=== PATIENT | male | born 1955 | race Caucasian/White ===

== ENCOUNTER 2023-05-16 09:38 | Outpatient (AMB) | payer MEDICARE, SELFPAY ==
--- NOTE | 2023-05-16 10:10 | A.SPINEOV_ITS ---
Intake Intake Visit Reasons: lower back stenosis Intake Note: Mr. Davison is here today c/o low back and bilateral sciatica pain. MRI done @ [facility]/brought disc. Sort Line Worker Required: No Assessment & Plan Assessment & Plan (1) Lumbar stenosis with neurogenic claudication: Code(s): M48.062 - Spinal stenosis, lumbar region with neurogenic claudication (2) Cervical myelopathy: Code(s): G95.9 - Disease of spinal cord, unspecified (3) Carpal tunnel syndrome on both sides: Code(s): G56.03 - Carpal tunnel syndrome, bilateral upper limbs Plan Dear colleague Thank you for referring Darius Davison to the office today with a chief complaint of bilateral leg pain. HPI: This 67-year-old male is complaining of a predominantly right leg pain since January 2020. He can hardly walk or stand due to pain. Initially, sitting down improves his symptoms now he has to lay down to get rid of the symptoms. Leaning over a shopping cart also improves his symptoms. The pain radiates down to the outside of his lower leg to his foot. Six weeks ago pain started in his left leg in the same distribution. On further questioning, he describes a sandpaper feeling under his feet, balance problems and numbness of his hand with dexterity loss. He had carpal tunnel syndrome release done 10 years ago and he is under the impression that the carpal tunnel symptoms returned. He also noticed jumping of his legs. The following conservative treatment options were tried without success antiinflammatories, tylenol, physical therapy, 2 epidural steroid injections without success. PMH: Hypertension Medications: Lisinopril, hydrochlorothiazide Allergies: NKDA Social history: Nonsmoker. . Retired Physical Exam: Pleasant, obese male. There is numbness of his bilateral hands. Reflexes are normal. No pathological reflexes. 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 Straight leg raise negative bilaterally. Slightly wide-based gait. 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 Impression/Plan: This 67-year-old male is suffering from neurogenic claudication an L5 dermatome due to severe bilateral L5 foraminal stenosis. Conservative treatments have failed. He also displays symptoms suspicious for cervical myelopathy. I would like to obtain an MRI of the cervical spine before addressing the bilateral L5 foraminal stenosis. The patient denies back pain and therefore we discussed a nonfusion in the form of a bilateral L5 foraminotomy. Possibly, I will address his carpal tunnel syndrome as well if the MRI of the cervical spine is negative. I will see the patient after the MRI of the cervical spine is done to make a final plan. Thank you for allowing me to participate in your patients care. total time spent was 50 minutes in counseling ,coordination of plan, personal review of imaging, surgical decision making and subsequent plan Martin Emerson MD, PhD Spine Fellowship Trained Neurosurgeon Director, [facility] [place] [facility] Orders: Orders MR cervical spine wo con Today G95.9 - Disease of spinal cord, unspecified Coding Level of Care Code New Pt Level 4 (10967) Diagnoses Lumbar stenosis with neurogenic claudication M48.062 Cervical myelopathy G95.9 Carpal tunnel syndrome on both sides G56.03
--- NOTE | 2023-06-12 15:01 | A.SPINEOV_ITS ---
Intake Intake Visit Reasons: lower back stenosis Assessment & Plan Assessment & Plan (1) Lumbar stenosis with neurogenic claudication: Code(s): M48.062 - Spinal stenosis, lumbar region with neurogenic claudication Plan: On 06/12/2023, had a telephone encounter with Zbigniew Davison. The MRI of the cervical spine shows no spinal cord compression. He continues to suffer from back pain radiating down both legs with walking and standing which improves with sitting or laying down. Imaging review severe bilateral L5 foraminal stenosis. I offered him a bilateral L5 foraminotomy to address the neurogenic claudication symptoms. He is scheduled for June 18, 2023. Martin Emerson MD, PhD Spine Fellowship Trained Neurosurgeon Director, [facility] [place] [facility] Orders: Orders MR cervical spine wo con 05/16/23 G95.9 - Disease of spinal cord, unspecified Coding Level of Care Code Tele Est Pt Level 1 (89836) Diagnoses Lumbar stenosis with neurogenic claudication M48.062
== END 2023-05-16 11:22 | disposition home or self-care (01) ==
PROVIDERS: PCP Family Medicine; Visit Provider Neurological Surgery
DX: M48.062 Spinal stenosis, lumbar region with neurogenic claudication (principal)
CPT/HCPCS: 99204; 99211

== ENCOUNTER → 2023-05-16 09:38 | Outpatient (BNVA) | payer MEDICARE, SELFPAY | PROVIDERS: PCP Family Medicine; Visit Provider Neurological Surgery ==

== ENCOUNTER → 2023-06-12 14:41 | Outpatient (BNVA) | payer MEDICARE, SELFPAY | PROVIDERS: PCP Family Medicine; Visit Provider Neurological Surgery ==

== ENCOUNTER 2023-06-18 08:06 | Day surgery (SDC) | payer MEDICARE, SELFPAY ==
[2023-06-18] VITALS (9 sets, daily range): BP systolic 114–156; BP diastolic 64–85; PULSE 79–91; RESP 14–20; TEMP 36.2–37.1; O2SAT 95–98; BMI 48.6
--- NOTE | ~2023-06-18 | FL_ITS ---
EXAMINATION: XR FLUOROSCOPY WITH IMAGES CLINICAL INFORMATION: L5 foraminotomy. COMPARISON: None available. TECHNIQUE: Fluoroscopy Supervised By: Dr. Martin Emerson. Fluoroscopy Time: 0.0 minutes. Cumulative Dose: 5.10 mGy. DAP: 0.961 Gycm2. Images: 2. FINDINGS: Images demonstrate instrument and probe posterior to the L5-S1 disc space. FL/FL guidance in OR IMPRESSION: Fluoroscopy guidance for lumbar spine surgery.
--- NOTE | 2023-06-18 07:05 | MHC.SHP ---
Pre-Procedural Eval Section A Date of Service: 06/18/23 The patient is an INPATIENT: No Changes since office visit: No Cold of Flu in the past 2 weeks, No New Medical Problems, No Changes in Medication and No Patient answered all questions The History & Physical has been completed within 30 days and I have reviewed it.: No Section B Chief Complaint: Spinal stenosis, lumbar region with neurogenic cla Review of Systems Sugical H&P ROS: Negative: Constitution, Cardiovascular, Respiratory, Neurological, Psychiatric, Hem-Onc, Allergic/Immunologic, Gastrointestinal, Genitourinary, Musculoskeletal, Integumentary, Endocrine and Eyes/Ears/Nose/Throat Exam Surgical H&P Exam: Not Evaluated: HEENT, Not Evaluated: Heart, Not Evaluated: Lungs, Not Evaluated: Extremities, Not Evaluated: Abdomen, Not Evaluated: Skin and Not Evaluated: Neurological Plan Diagnosis/Plan: Unchanged I have reviewed the history and physical and performed a pertinent physical examination on my patient. No changes have occurred unless specified. bilateral L5 foraminotomy Time Spent With Patient Time: Total time managing care of this patient today __10__ minutes.
[2023-06-18] MEDS: methocarbamoL 750 MG TABLET PO (11:36)
[2023-06-18] MEDS: Gabapentin 300 MG CAPSULE PO (11:36)
[2023-06-18] MEDS: Lactated Ringers 1,000 ML 100 ML IVCONT (11:47)
--- NOTE | 2023-06-18 12:05 | HO.ANESPROP2 ---
HPI - Anesthesia Eval Consult details Narrative: lumbar radiculopathy PMFSH Active Problems Active Problems: All Active Problems (Updated 05/16/23 @ 10:57 by Martin Emerson MD, PhD) Carpal tunnel syndrome on both sides (Acute) Cervical myelopathy (Acute) Lumbar stenosis with neurogenic claudication (Acute) Family History Family history of problems with anesthesia: No Surgical History Surgical History (Updated 06/18/23 @ 08:52 by Heidi Johnson RN) H/O right knee surgery History of Problems with Anesthesia: Yes Social History Patient Tobacco Use Status: Never used Tobacco Have you been hit, kicked, punched, or otherwise hurt by someone within the past year? If so, by whom?: No Advance Directives: No Advance Directives Information Provided: Yes Recently lost weight without trying: No Nutrition Risks: No Nutritional Risk Poor oral hygiene: No Meds Allergies Allergy/AdvReac Type Severity Reaction Status Date / Time No Known Allergies Allergy Verified 06/18/23 08:54 Active Medications: Current Medications Lactated Ringer's (Lr) 1,000 mls @ 100 mls/hr IVCONT .Q10H ULYSSES Last Admin: 06/18/23 11:47 Dose: 100 mls/hr Home Medications Medication Instructions Recorded Confirmed Last Taken Type aspirin 81 mg capsule 81 mg PO DAILY 06/18/23 06/18/23 06/18/23 History hydrochlorothiazide 25 mg tablet 25 mg PO DAILY 06/18/23 06/18/23 06/18/23 History ibuprofen 400 mg tablet 400 mg PO Q8H PRN Pain, Moderate 06/18/23 06/18/23 06/18/23 History lisinopril 5 mg tablet 5 mg PO DAILY 06/18/23 06/18/23 06/18/23 History Exam Height,Weight and Vital Signs: Height 5 ft 5 in Weight 132.449 kg Last Vital Signs Temp 98.8 F 06/18/23 08:46 Pulse 86 06/18/23 08:46 Resp 18 06/18/23 08:46 BP 151/76 H 06/18/23 08:46 Pulse Ox 95 06/18/23 08:46 O2 Del Method Room Air 06/18/23 08:46 Airway Mallampati Class: III TM Dist: >3cm Neck ROM: Limited Heart: rrr Lungs: cta Other: morbid obesity Assessment and Plan Final Anesthetic Review Family History of Problems with Anesthesia: No History of Problems with Anesthesia: Yes NPO: Yes ASA Class: III Final Preanesthetic Review: No Changes in Pt Med Stat, Meds/Allgs Chart Reviewed, Consent Obtained/Reviewed and Anes Risks/Benef Reviewed Patient Risk: High Procedure Risk: Intermediate Anesthetic Plan Anesthetic Plan: GA and Agree w/ Assess. and Plan Disposition: Standard PACU
--- NOTE | 2023-06-18 14:29 | W.PM.OPN ---
Operative Note Operative Note Date of Service: 06/18/23 Narrative: Preoperative Diagnosis: L5-S1 spondylolisthesis/ Spinal stenosis/lateral recess stenosis/neural foraminal stenosis Operation: Bilateral L5 Laminotomy, Partial facetectomy and foraminotomy with use of microscope Consent Informed Consent was obtained for this operation. I have explained the nature, purpose and benefits of the operation. I have discussed the risks and benefit of the operation including possible complications or adverse events with patient/family. Alternative(s) were discussed with the patient with their relative benefits and risks as well as the consequences of not accepting the operation were included in obtaining consent. Surgeon: MARISOL ROMO MD, PHD Procedure Assisted By: larisa Barbour Description of Procedure This 67-year-old male presented with a stable L5-S1 lumbar spondylolisthesis without back pain but with bilateral L5 radiculopathy due to severe L5 foraminal stenosis. We discussed surgical options, being a simple decompression versus lumbar fusion. He denies back pain and therefore a simple bilateral L5 laminotomy/foraminotomy is appropriate. The procedure complications were explained. The patient was consented. The patient was brought to the operating room and endotracheally intubated. The patient was turned in prone position on the Dion frame. Prep and drape was done followed by timeout. Physician assistant corporate controller provided access. A mid lumbar incision was made followed by release of the bilateral paravertebral muscle to expose the bilateral L5 laminae and facet joint. An intraoperative x-ray was obtained to confirm the correct level. The microscope was brought in. I took over the procedure. The high-speed drill was used to do a left L5 laminotomy. #2 Kerrison was used to further remove the lamina towards the L5 foramen foramen. With a nerve hook the medial wall of the L5 pedicle was palpated as well as the beginning of the L5 foramen. The facet joint was partially drilled down after which with a #2 Kerrison a foraminotomy was done. Finally a foraminotomy Kerrison was used to complete the foraminotomy. A long the nerve root could be passed, a sign of relief of the neuroforaminal stenosis and decompression of the nerve root . The same procedure was repeated for the contralateral side where again a significantly compressed L5 nerve root was encountered and decompressed by performing hemilaminotomy and foraminotomy. The microscope was removed. Hemostasis was done. Incision was closed in 2 layers. Steri-Strips were used to approximate incision. An OpSite with Tegaderm was used to cover the incision. All sponge needle counts were correct. Patient was extubated and transported in stable is to recovery room. Anesthesia: General Estimated Blood Loss (ml): Minimal Duration of Surgery: Under 60 Minutes Postoperative Plan: Discharge to home
--- NOTE | 2023-06-18 14:45 | P.DS_ITS ---
DS: Providers Provider Date of Service: 06/18/23 Date of discharge: 06/18/23 Primary care physician: Cosme Mabry MD Admitting clinician: Martin Emerson DS: Diagnosis Discharge Diagnosis (1) Lumbar stenosis with neurogenic claudication: Status: Acute DS: Summary Time Attestation Discharge coordination time: Less than 30 minutes Quality: Safe Use of Opioids Does Pt have an Active Cancer Diagnosis on the Problem List?: No Quality: Stroke Does the patient have a stroke diagnosis?: No Physical Exam Vital Signs: Vital Signs: Last Vital Signs Temp 98.8 F 06/18/23 08:46 Pulse 86 06/18/23 08:46 Resp 18 06/18/23 08:46 BP 151/76 H 06/18/23 08:46 Pulse Ox 95 06/18/23 08:46 O2 Del Method Room Air 06/18/23 08:46 BMI result Body Mass Index 48.6 Discharge Plan Discharge Patient Disposition: Home, Self-Care Referrals: Cosme Mabry MD [Primary Care Provider] - 1 Week Discharge Medications: New docusate sodium [Colace] 100 mg capsule 100 mg PO BID Qty: 20 0RF oxycodone 5 mg tablet 5 mg PO Q4H PRN (Reason: pain) Qty: 30 0RF Rx Instructions: Partial Fill upon patient request. Continued hydrochlorothiazide 25 mg Tablet 25 mg PO DAILY lisinopril 5 mg Tablet 5 mg PO DAILY ibuprofen 400 mg Tablet 400 mg PO Q8H MDD 800 PRN (Reason: Pain, Moderate) Held aspirin 81 mg Capsule 81 mg PO DAILY Hold Instructions: Resume on 06/25/23. resume one week after surgery Discharge Orders: Discharge Order (Routine); Ordered 06/18/23 Ordered By: Alexis Armijo Diet: Advance to usual diet Activity on Discharge: As tolerated Activity Restrictions/Additional Instructions: After your spinal surgery we ask you to observe the following restrictions/guidelines: Activity: It is normal to feel some discomfort as you increase your activity, but that wi ll improve with time. We ask you avoid heavy lifting or acitivities that cause pain. As a general rule, 8lbs is a safe limit for lifting right after surgery. Walk as much as you feel comfortable but not to exhaustion. You will feel extra tired the first few days after surgery. Stay well hydrated. It is OK to walk up and down stairs You may return to driving when you are off narcotics (such as vicodin, oxycodone, dilaudid, etc), and you are back to normal functional capacity. If you have any concerns please check with office before driving. Return to work is specific to each patient and each surgery, so please speak with your doctor/PA at first follow up. Please bring paperwork such as FMLA at that time if you need it filled out. Medications: For optimum pain control, it is best to start with a combination of 500 mg of Tylenol every 4 hours with 600 mg of Motrin every 8 hours, and use narcotics as needed in between for breakthrough pain. We will give you a short supply of narcotics after surgery (usually one weeks worth). If you need more please call the office but do not use more than prescribed. You will need to give our office 48 hours notice if you need narcotics refilled and we do not fill narcotics on weekends or evenings. If you are on a narcotic, it is a good idea to take a stool softener such as colace or senna to avoid constipation If you take blood thinner such as aspirin, Plavix, Coumadin, Effient, Eliquis etc for conditions such as Afib, DVT, Pulmonary embolus, coronary disease, stents etc please speak with your surgeon about specific details as to when you can resume these medications. You can resume NSAIDs on post op day 1 (eg: Motrin, Naproxen, etc). Follow up: Please call the office, , after surgery to arrange a 3 week follow up for wound check. Wound Care: You may remove your dressing on the first day after surgery. You may leave open to air. Please do not remove the steri strips underneath. they will fall off on their own in one week. IT IS NORMAL FOR THE WOUND TO OOZE OR BE BLOODY FOR A FEW DAYS AFTER SURGERY. IF THIS HAPPENS JUST PLACE NEW DRESSING OVER IT TO AVOID STAINING CLOTHES. You may shower on post op day # 1 We ask that you do not let the water soak the wound. If it does get wet, just towel dry lightly. Please do not scrub your incision or place any type of chemical/ointment on the wound. No tub baths, pools or jacuzzis for one month. If you have any leaking or redness from your wound, or fevers, please call office
--- NOTE | 2023-06-18 16:44 | PC.NURSE ---
patient ambulated steady gait in bathroom voidx1
== END 2023-06-18 16:44 | disposition home or self-care (01) ==
PROVIDERS: PCP Family Medicine; Visit Provider Neurological Surgery
PROC: (CPT 63047; principal; 2023-06-18 10:40)
DX: M48.062 Spinal stenosis, lumbar region with neurogenic claudication (principal); M43.17 Spondylolisthesis, lumbosacral region
CPT/HCPCS: 63047; J0131; J0690; J1100; J1885; J2250; J2405; J2704; J3010

== ENCOUNTER → 2023-06-18 08:06 | Outpatient (BNV) | payer MEDICARE, SELFPAY | PROVIDERS: PCP Family Medicine; Visit Provider Neurological Surgery | DX: M48.062 Spinal stenosis, lumbar region with neurogenic claudication (principal) | CPT/HCPCS: 63047; 99499 ==

== ENCOUNTER 2023-06-27 09:13 | Outpatient (AMB) | payer MEDICARE, SELFPAY ==
--- NOTE | 2023-06-27 09:30 | A.SPINEOV_ITS ---
Intake Intake Visit Reasons: wound check Intake Note: Mr. Davison is here today for a wound check. Manager Book Required: No Allergies No Known Allergies Allergy (Verified 06/18/23 08:54) Assessment & Plan Assessment & Plan (1) S/P spinal surgery: Code(s): Z98.890 - Other specified postprocedural states Plan Procedure: L5 bilateral decompression POD: 9 Zbigniew comes in today for a wound check after calling the office yesterday and reporting that he had some continued bleeding from his incision site alongside ecchymosis that had formed on his lateral side about 4-5 inches from the wound. He reported that he has been taking roughly 2400 mg of ibuprofen per day, and was encouraged to begin reducing this by roughly half. He states that his primary care provider put him on this medication for pain, and that is been significantly helping his postoperative pain relief. Our concern is that it may be causing him continued bleeding postoperatively. On exam Zbigniew has a 4-5 cm area of ecchymosis that has formed to the left lateral side of the incision site. He also has some scant ecchymosis around the actual incision. There is no significant swelling, his skin is not hot to touch, there is no fluctuance palpated, and there is no streaking or redness around the incision site. The incision site remains well approximated, with subcutaneous buried sutures. Initially the incision was treated by cleansing it with alcohol and attempting horizontal Steri-Strips with a bandage on top, however the wound continued to produce sanguinous drainage, and the patient inquired of any other options we could provide which would stop the drainage without the need for copious frequent bandage changes. Therefore the initial bandage was removed, and the wound was cleaned again with isopropyl alcohol and gauze, then a layer of exofin was used to encourage close approximation of the incision site. Two vertical Steri-Strips were imbedded in the Exofin, and a large standard bandage was placed over the top of the incision site. Hemostasis was then achieved. The plan going forward is for the patient to follow-up in office at his regularly scheduled postoperative visit. Because he lives 1.5 hours away, he was informed that he may call the office at any time and we will facetime with him to reassess his incision site if any further complications arise. Ruperto Emerson MD,PhD [facility] Coding Level of Care Code Global (36865) Diagnoses S/P spinal surgery Z98.890
== END 2023-06-27 10:13 | disposition home or self-care (01) ==
PROVIDERS: PCP Family Medicine; Visit Provider Physician Assistant
DX: Z98.890 Other specified postprocedural states (principal)
CPT/HCPCS: 99024

== ENCOUNTER → 2023-06-27 09:13 | Outpatient (BNVA) | payer MEDICARE, SELFPAY | PROVIDERS: PCP Family Medicine; Visit Provider Physician Assistant | DX: Z98.890 Other specified postprocedural states (principal) | CPT/HCPCS: 99212 ==

== ENCOUNTER 2024-07-04 10:42 | Outpatient (AMB) | payer MEDICARE, SELFPAY ==
--- OUTSIDE RECORDS SUMMARY | 2024-07-04 10:52 | XMS_ITS | Continuity of Care Document ---
Author Organization [facility], [facility] Address [address] [place] [address] Assessment Encounter Date Assessment Date Assessment LastModified by Organization Details LastModified Time 06/10/2024 06/10/2024 40min [email or web address] Not available 05/23 09:36:48 Plan of Treatment Reminders Order Date Submit Date Provider Last Modified By Organization Details Last Modified Time Details Appointments FOLLOW UP 2024 08:00A M Cosme Reyes MD Not available Not available Not available Lab None recorded . Referral None recorded . Procedures None recorded . Surgeries None recorded . Imaging None recorded . Medication Orders None recorded . Patient TargetsNo targets recorded. Patient InstructionsNo instructions recorded. Reason for Referral None Reported. Results Created Date Observation Date Name Description Value Unit Range Abnormal Flag Note LastModifiedBy Organization Detail LastModifiedTime 05/29/2005/29/2024 CT, brain , w/o contr ast [facility] Imagin [facility] Hospit al [facility] [place] [address] CT Scan Report Signed Patien t: YulyYordy boone rachel 1825 : [address]: Jose Reyes Age: 68 E.D. Attend ing: EMR ID: [id number] Loc: RAD.NR PCP:St noah Reyes MD Acct: [id number] Admit/ Svc Date: Orderi ng Physic akin: Jose Reyes MD Date of Servic e: Proced ure(s) : CT brain wo con Reason for Exam: Stroke W expres sive aphasi a Access ion Number (s): [id number] Fax to: cc: Jose Reyes MD CT OF THE BRAIN WITHOU T IV CONTRA ST 024 3:00 PM REASON FOR EXAM: 68 years Male with Stroke W expres sive aphasi a COMPAR SANDY: None availa ble TECHNI QUE: Comput ed axial tomogr aphy images of the head withou t IV contra st from the skull base to the vertex with 5 mm axial sectio ns with iterat dru recons tructi on dose reduct ion techni que. Sagitt al and Topete l 2.5 mm reform ats. FINDIN GS: BRAIN: Mild cerebr al atroph y. Scatte red nonspe cific hypode nsitie s in the cerebr al white matter compat ible with mild chroni c small vessel ischem ic change s. No acute infarc tion, acute intrac ranial hemorr trent, extra- axial fluid collec tion, mass, mass-e ffect, or midlin e shift. BONES: No acute fractu re or suspic ious osteol ytic or osteob lastic lesion . Chroni c fractu re of the left lamina papyra cea. SOFT TISSUE S: Normal ORBITS : Normal . SINUSE S: Clear. MASTOI D AIR CELLS: Trace right mastoi d fluid. CONCLU JESE: No acute intrac ranial findin gs. Statio n: [id number] Electr onical ly signed on at 1130 by Avni Dwyer MD. [facility]ITALWal[facility] [email or web address] [facility] (Radiology) [address] [place] [address] [place], [address], 05/29/2024 18:00:31 Result Notes None recorded. 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 spinal stenosis L2-3, L3-4 Cosme Reyes MD [address], [place], [address] , [facility] Re[facility] MD 2 17:04:07 History of SARS-CoV- 2 30375555501 3499398 Active 2021 MICHELLE Quinones [address], [place], [address] , [facility] Reyes MD 2 12:34:00 Hypertens dru disorder 20731573 Active 2016 Cosme Reyes MD [address], [place], [address] , [facility] Reyes MD 2 17:02:29 Obstructi ve sleep apnea syndrome 54964936 Active 2016 Not Available [facility] 1 10:41:28 Osteoarth ritis 270980916 Active 2016 Not Available [facility] 1 10:41:28 Problem Notes None recorded. Medical Equipment None Reported. Allergies No known drug allergies Medications Name Sig Start Date Stop Date Status Note LastModified by Organization Details LastModified Time cyclobenzap rine 10 mg tablet Take 1 tablet 3 times a day by oral route as needed. 02/05 completed Not Available Not Available Not Available prednisone 10 mg tablet PLEASE SEE ATTACHED FOR DETAILED DIRECTION S 03/05 completed Not Available Not Available Not Available prednisone 20 mg tablet PLEASE SEE ATTACHED FOR DETAILED DIRECTION S 11/18 completed Not Available Not Available Not Available tamsulosin 0.4 mg capsule 01/20 completed Not Available Not Available Not Available lisinopril 10 mg tablet TAKE 1 TABLET BY MOUTH EVERY DAY 01/20 completed Not Available Not Available Not Available metronidazo le 0.75 % topical cream APPLY A THIN LAYER TO THE AFFECTED AREA(S) BY TOPICAL ROUTE once daily 02/05 completed Not Available Not Available Not Available folic acid 1 mg tablet TAKE 1 TABLET BY MOUTH EVERY DAY active Not Available Not Available No t Available hydrochloro thiazide 25 mg tablet TAKE 1 TABLET BY MOUTH EVERY DAY active Not Available Not Available No t Available ibuprofen 600 mg tablet Take 1 tablet 3 times a day by oral route as needed, for back pain. active Not Available Not Available No t Available finasteride 5 mg tablet TAKE 1 TABLET BY MOUTH EVERY DAY active Not Available Not Available No t Available [employer] At-Home COVID-19 Test kit USE DIRECTED 11/18 completed Not Available Not Available Not Available Paxlovid 300 mg (150 mg x 2)-100 mg tablets in a dose pack TAKE 3 TABLETS BY MOUTH TWICE A DAY FOR 5 DAYS 11/18 completed Not Available Not Available Not Available Vitals Date Recorded Body height Body mass index (BMI) Body weight Oxygen saturation Oxygen saturation in Arterial blood by Pulse oximetry Heart rate Systolic blood pressure Diastolic blood pressure Provider Name and Address Organization Details Last Updated DateTime 4 164.47 cm 47.5 kg/m2 516833. 64 g 95 % 95 % 63 /min 114 mm[Hg] 76 mm[Hg] Rose Guerrero [place] - [facility] 4 08:49:35 Social History Question Answer Notes LastModified by Organizat ion Details LastModified Time Tobacco Smoking Status Never Smoker Not Available [facility] 05/25/2020 03:48:01 What Is Your Occupation? Retired [id number] Information not available 05/25/2020 Marital Status [email or web address] Informatio n not available 05/09/2017 What Was The Date Of Your Most Recent Tobacco Screening? 04/24/2018 [id number] Information not available 05/25/2020 General Stress Level Low Information not available 05/09/2017 Sex: Unknown Functional Status Question Answer Note LastModified by Organization D etails LastModified Time What is your exercise level? None [id number] Information not available 05/25/2020 Mental Status None recorded. Family History Relationship Description Onset Age of this Age Resolved Age Notes LastModified by Organization Details LastModified Time Father Coronary arterioscler osis [email or web address] Not available 2016 16:06:33 Mother Diabetes mellitus [email or web address] Not available 2016 16:06:49 Medical History No medical history recorded. Immunizations Vaccine Type Date Status Note Provider Nam e and Address Organization Details Recorded Time Td (adult) 7 completed Not Available [facility] 09/09/2020 14:03:23 Influenza, split virus, quadrivalent, preservative 8 completed [facility] 14:03:23 Influenza, split virus, quadrivalent, preservative 9 completed Not Available [facility] 09/09/2020 14:03:23 Influenza, split virus, quadrivalent, preservative 0 completed Not Available [facility] 09/09/2020 14:03:23 pneumococcal polysaccharide PPV23 1 completed [facility] miranda MD 06/07/2021 16:07:49 Influenza, split virus, quadrivalent, preservative 1 completed [facility] miranda MD 06/07/2021 16:10:43 Influenza, adjuvanted, quadrivalent, PF 2 completed [facility] dowling MD 06/01/2022 08:11:53 Influenza, split virus, quadrivalent, preservative 6 completed Not Available [facility] 09/09/2020 14:03:23 Past Encounters Encounter ID Performer Location Encounter Start Date Encounter Closed Date Diagnosis/Indication Diagnosis SNOMED-CT Code Diagnosis ICD10 Code [id number] MD cosme Paul md [address] [place] [address] 05/19/2024 08:42:45 05/19/2024 09:50:38 Aphasia 49214622 R47.01 Hypertensive disorder 38 961980 I10 Morbid obesity 384349377 E66.01 [id number] MD cosme Paul md [address] [place] [address] 06/10/2024 08:20:35 06/10/2024 09:29:02 Onychomycosis of toenails 455084249 B35.1 Low back pain 402507154 M54.50 Benign pro static hyperplasia 599423183 N40.1 Memory impairment 076490 006 R41.3 Health Concerns Section Related Observation LastModified by Organization Detai ls LastModified Time None Recorded Concern Status LastModified by Organization Details LastModified Time None Recorded Payers Encounter Date Sequence Insurance Name Policy Number Policy Wolfe Covered Member ID Wolfe Member ID Guarantor Name 06/10/2024 1 [place] [employer] Zbigniew Davison [id number] Zbigniew Watson Saman 06/10/2024 2 [facility] [employer] [place]PPLEMENT) [id number] Zbigniew Watson Saman [id number] Zbigniew Watson Saman Notes Date Note Type Note Provider Name and Address Organization Details Recorded Time 4 text/html Patient follows up with his initially for deformed toenails. He has thickened yellowed toenails which often catch on his socks. They have been using topical antifungals [id number] without real improvement. He also has intermittent back pain. Most of the time the patient does not get up to move around he lays on the couch most of the day. We reviewed his upcoming appointment with neurology for difficulty with word finding. CT of the brain was unremarkable. Blood work showed a low folic acid level and I have placed him on folic acid. He is continues with polyuria urinalysis was normal he has a history of BPH takes finasteride. Urology is scheduled for follow-up. I did mention hydrochlorothiazide which were used for hypertension could increase his urinary frequency he wants to remain on the medication. Cosme Reyes MD [address], [place], [address], [facility] - Cosme Reyes MD 06/10/2024 09:37:14
--- OUTSIDE RECORDS SUMMARY | 2024-07-04 10:52 | XMS_ITS | Data Portability ---
Author Organization [facility] Telemedicine Address [address] [place] [id number] Assessment Encounter Date Assessment Date Assessment LastModified by Organization Details LastModified Time 05/19/2024 05/19/2024 Suspicious for underlying cerebrovascular accident affecting his speech as well as underlying depression and obesity. Check CT of the brain with IV contrast and neurologic referral. I briefly discussed options for antidepressants. Check chemistry lipid CBC TSH B12 folate and PSA. Follow-up in a month. 60min Not available 05/19/2024 09:40:58 06/10/2024 06/10/2024 40min [email or web address] Not available 05/23 09:36:48 Plan of Treatment Reminders Order Date Submit Date Provider Last Modified By Organization Details Last Modified Time Details Appointments FOLLOW UP 30 2024 08:00A Verenice Reyes MD Not available Not available Not available Lab None recorded . Referral None recorded . Procedures None recorded . Surgeries None recorded . Imaging None recorded . Medication Orders None recorded . Patient TargetsNo targets recorded. Patient InstructionsNo instructions recorded. Reason for Referral None Reported. Results Created Date Observation Date Name Description Value Unit Range Abnormal Flag Note LastModifiedBy Organization Detail LastModifiedTime 10/09/1910/09/2023 COMPR EHENS YESICA METAB OLIC PANEL sodium 140 mEq/L 133-14 5 normal Not Available [address] [place] [address], 55[address], 10/09/2023 14:44:52 10/09/19 24 10/09/2023 COMPR EHENS YESICA METAB OLIC PANEL potassium 3.9 mEq/L 3.5-5. 1 normal Not Available [address] [place] [address], 67[address], 10/09/2023 14:44:52 10/09/19 24 10/09/2023 COMPR EHENS YESICA METAB OLIC PANEL chloride 101 mEq/L 98-107 normal Not Available [address] [place] [address] [address] [place] [address], 10[address], 10/09/2023 14:44:52 10/09/19 24 10/09/2023 COMPR EHENS YESICA METAB OLIC PANEL carbon dioxide 25 mEq/L 22-31 normal Not Available [facility] Drawing Station [address] [place] [address], 478[address], 10/09/2023 14:44:52 10/09/19 24 10/09/2023 COMPR EHENS YESICA METAB OLIC PANEL anion gap 14 mEq/L 5-15 normal Not Available [address] [place] [address] Draw[address] [place] [address], 720[address], 10/09/2023 14:44:52 10/09/19 24 10/09/2023 COMPR EHENS YESICA METAB OLIC PANEL blood urea nitrogen (BUN) 13 mg/dL 8-26 normal Not Available [address] [place] [address] Draw[address] [place] [address], [address], 10/09/2023 14:44:52 10/09/19 24 10/09/2023 COMPR EHENS YESICA METAB OLIC PANEL creatinine 0.94 mg/dL 0.70-1 .18 normal Not Available [address] [place] [address], [address], 10/09/2023 14:44:52 10/09/19 24 10/09/2023 COMPR EHENS YESICA METAB OLIC PANEL est.glomerul ar filtration rate > 60 Units : mL/mi n/1.7 3 m2 Estim ated GFR (eGFR ) shoul d not be used for patie nts with acute kidne y injur y or ESRD (crea tinin e shoul d be at stead y state and stabl e to use). eGFR is calcu lated using the Natio nal Kidne y Found ation 2021 CKD-E PI creat inine equat ion, which is now the recom rosemarie d equat ion to estim ate GFR based on creat inine per hugo t KDIGO (Kidn ey Disea se Impro ving Globa l Outco mes) Guide lines . KDIGO recom mends CKD now be class ified based on cause , GFR categ ory, and album inuri a categ ory. GFR categ ories will not be repor roxana by the lab for G1 or G2 (eGFR >60). GFR categ ories shoul d be assig lorie as: eGFR 45-59 = G3a (mild ly to moder ately decre ased) , eGFR 30-44 = G3b (mode ratel y to sever bjorn decre ased) , eGFR 15-29 G4 (magda rely decre ased) , eGFR< 15 G5 (kidn ey failu re). Not Available [address] [place] [address], [address], 10/09/2023 14:44:52 10/09/19 24 10/09/2023 COMPR EHENS YESICA METAB OLIC PANEL glucose 97 mg/dL 70-100 normal Fasti ng Refer ence Inter sarah: 70-10 0mg/d L Non-f astin g Refer ence Inter sarah: 70-14 0mg/d L Not Available [address] [place] [address], 94[address], 10/09/2023 14:44:52 10/09/19 24 10/09/2023 COMPR EHENS YESICA METAB OLIC PANEL calcium 9.5 mg/dL 8.4-10 .4 normal Not Available [address] [place] [address], 47865, 10/09/2023 14:44:52 10/09/19 24 10/09/2023 COMPR EHENS YESICA METAB OLIC PANEL bilirubin total 1.0 mg/dL 0.2-1. 2 normal Not Available [address] [place] [address], 865[address], 10/09/2023 14:44:52 10/09/19 24 10/09/2023 COMPR EHENS YESICA METAB OLIC PANEL aspartate amino transferase 17 IU/L 5-34 normal Not Available [address] [place] [address], 41162, 10/09/2023 14:44:52 10/09/19 24 10/09/2023 COMPR EHENS YESICA METAB OLIC PANEL alanine aminotransfe rase 12 IU/L 0-55 normal Not Available [address], [address], 10/09/2023 14:44:52 10/09/19 24 10/09/2023 COMPR EHENS YESICA METAB OLIC PANEL total protein 7.3 g/dL 5.8-8. 1 normal Not Available [address] [place] [address], 91067, 10/09/2023 14:44:52 10/09/19 24 10/09/2023 COMPR EHENS YESICA METAB OLIC PANEL albumin 4.0 g/dL 2.8-5. 4 normal Not Available [address] [place] [address], 06244, 10/09/2023 14:44:52 10/09/19 24 10/09/2023 COMPR EHENS YESICA METAB OLIC PANEL alkaline phosphatase 61 IU/L 40-150 normal Not Available [address] [place] [address], 60561, 10/09/2023 14:44:52 10/09/19 24 10/09/2023 LIPID PANEL triglyceride s 249 mg/dL high High <=150 Amaya l 150-1 99 Borde rline High 200-4 99 High >=500 Very High Not Available [address] [place] [address], 30694, 10/09/2023 14:44:52 10/09/19 24 10/09/2023 LIPID PANEL cholesterol 185 mg/dL normal Armando able <200 Armando able 200-2 39 Borde rline High >=240 High Not Available [address] [place] [address], 11798, 10/09/2023 14:44:52 10/09/19 24 10/09/2023 LIPID PANEL LDL cholesterol calculated 103 mg/dL normal Near Optim al <100 Optim al 100-1 29 Near optim al 130-1 59 Borde rline High 160-1 89 High >=190 Very High Not Available [address] [place] [address] [address] [place] [address], 51[address], 10/09/2023 14:44:52 10/09/19 24 10/09/2023 LIPID PANEL HDL cholesterol 32 mg/dL 40- low Not Available [address] [place] [address], 76[address], 10/09/2023 14:44:52 10/09/19 24 10/09/2023 PSA SCREE N PSA screen 0.39 NG/mL 0-4 normal This test was perfo rmed using the IntelliFlom an Coult er Acces s Chemi lumin escen t metho d. Value s obtai lorie from diffe rent assay metho ds canno t be used inter villa eastellay . Level s, regar dless of value , shoul d not be inter prete d as absol nome evide nce of the prese nce or absen ce of disea se. This test shoul d be inter prete d withi n the total clini david prese ntati on of the patie nt. Not Available [address] [place] [address], 773[address], 10/09/2023 14:54:36 10/09/19 24 10/09/2023 COMPL ETE BLOOD COUNT W/ DIFF white blood count 7.9 K/mm3 4.0-11 .0 normal Not Available [address] [place] [address] [address] [place] [address], 68459, 10/09/2023 15:12:31 10/09/19 24 10/09/2023 COMPL ETE BLOOD COUNT W/ DIFF red blood count 5.37 M/uL 4.20-5 .80 normal Not Available [address] [place] [address], 47913, 10/09/2023 15:12:31 10/09/19 24 10/09/2023 COMPL ETE BLOOD COUNT W/ DIFF hemoglobin 15.2 gm/dL 12.5-1 7.0 normal Not Available [address] [place] [address], 60568, 10/09/2023 15:12:31 10/09/19 24 10/09/2023 COMPL ETE BLOOD COUNT W/ DIFF hematocrit 46.1 % 37.0-5 0.0 normal Not Available [address] [place] [address], 75480, 10/09/2023 15:12:31 10/09/19 24 10/09/2023 COMPL ETE BLOOD COUNT W/ DIFF mean corpuscular volume 85.8 fL 80.0-1 00.0 normal Not Available [address] [place] [address], 15637, 10/09/2023 15:12:31 10/09/19 24 10/09/2023 COMPL ETE BLOOD COUNT W/ DIFF MCHC 33.0 % 32-37 normal Not Available [address] [place] [address], 41987, 10/09/2023 15:12:31 10/09/19 24 10/09/2023 COMPL ETE BLOOD COUNT W/ DIFF red cell distribution width 13.3 % 11.5-1 6.0 normal Not Available [address] [place] [address], 12049, 10/09/2023 15:12:31 10/09/19 24 10/09/2023 COMPL ETE BLOOD COUNT W/ DIFF platelet count 173 K/uL 140-40 0 normal Not Available [address] [place] [address], 18196, 10/09/2023 15:12:31 10/09/19 24 10/09/2023 COMPL ETE BLOOD COUNT W/ DIFF mean platelet volume 9.7 fL 8.6-12 .5 normal Not Available [address] [place] [address], 13729, 10/09/2023 15:12:31 10/09/19 24 10/09/2023 COMPL ETE BLOOD COUNT W/ DIFF %nucleated RBC auto 0.0 % 0.0-0. 7 normal Not Available [address] [facility] [address] [place] [address], 13144, 10/09/2023 15:12:31 10/09/19 24 10/09/2023 COMPL ETE BLOOD COUNT W/ DIFF %neutrophils auto 67.0 % Not Available [address] [facility] [address] Drawing Station [address] [place] [address], 55960, 10/09/2023 15:12:31 10/09/19 24 10/09/2023 COMPL ETE BLOOD COUNT W/ DIFF %lymphocytes auto 21.7 % Not Available [address] [facility] Drawing Station [address] [place] [address], 34582, 10/09/2023 15:12:31 10/09/19 24 10/09/2023 COMPL ETE BLOOD COUNT W/ DIFF %monocytes auto 8.8 % Not Available [address] [facility] Draw[facility] Station [address] [place] [address], 42385, 10/09/2023 15:12:31 10/09/19 24 10/09/2023 COMPL ETE BLOOD COUNT W/ DIFF %eosinophils auto 1.5 % Not Available [address] [facility] Draw[facility] Station [address] [place] [address], 08331, 10/09/2023 15:12:31 10/09/19 24 10/09/2023 COMPL ETE BLOOD COUNT W/ DIFF %basophils auto 0.9 % Not Available [address] [facility] [address] Drawing Station [address] [place] [address], 70040, 10/09/2023 15:12:31 10/09/19 24 10/09/2023 COMPL ETE BLOOD COUNT W/ DIFF %immature granulocytes auto 0.1 % Not Available [address] [facility] [address] Drawing Station [address] [place] [address], 67586, 10/09/2023 15:12:31 10/09/19 24 10/09/2023 COMPL ETE BLOOD COUNT W/ DIFF #neutrophils auto 5.28 K/uL 1.50-7 .50 normal Not Available [address] [place] [address], 63632, 10/09/2023 15:12:31 10/09/19 24 10/09/2023 COMPL ETE BLOOD COUNT W/ DIFF #lymphocytes auto 1.71 K/uL 1.00-4 .50 normal Not Available [address] [place] [address], 94835, 10/09/2023 15:12:31 10/09/19 24 10/09/2023 COMPL ETE BLOOD COUNT W/ DIFF #monocytes auto 0.69 K/uL 0.00-0 .80 normal Not Available [address] [place] [address], 40138, 10/09/2023 15:12:31 10/09/19 24 10/09/2023 COMPL ETE BLOOD COUNT W/ DIFF #eosinophils auto 0.12 K/uL 0.00-0 .40 normal Not Available [address] [place] [address], 87305, 10/09/2023 15:12:31 10/09/19 24 10/09/2023 COMPL ETE BLOOD COUNT W/ DIFF #basophils auto 0.07 K/uL 0.00-0 .20 normal Not Available [address] [place] [address], 83227, 10/09/2023 15:12:31 10/09/19 24 10/09/2023 COMPL ETE BLOOD COUNT W/ DIFF #immature granulocytes auto 0.01 K/uL 0.00-0 .10 normal Not Available [address] [place] [address], 81639, 10/09/2023 15:12:31 10/09/19 24 10/09/2023 HEMOG LOBIN A1C hemoglobin A1C 5.6 % 4.4-6. 3 normal Not Available [address] [place] [address], 32614, 10/09/2023 15:12:32 05/20/2005/20/2024 COMPL ETE BLOOD COUNT W/ DIFF white blood count 8.3 K/mm3 4.0-11 .0 normal Not Available [address] [place] [address], 76241, 05/20/2024 14:41:02 05/20/2005/20/2024 COMPL ETE BLOOD COUNT W/ DIFF red blood count 5.55 M/uL 4.20-5 .80 normal Not Available [address] [place] [address], 45645, 05/20/2024 14:41:02 05/20/2005/20/2024 COMPL ETE BLOOD COUNT W/ DIFF hemoglobin 15.8 gm/dL 12.5-1 7.0 normal Not Available [address] [place] [address], 24815, 05/20/2024 14:41:02 05/20/2005/20/2024 COMPL ETE BLOOD COUNT W/ DIFF hematocrit 48.0 % 37.0-5 0.0 normal Not Available [address] [place] [address], 45840, 05/20/2024 14:41:02 05/20/20 24 05/20/2024 COMPL ETE BLOOD COUNT W/ DIFF mean corpuscular volume 86.5 fL 80.0-1 00.0 normal Not Available [address] [place] [address], 47459, 05/20/2024 14:41:02 05/20/2005/20/2024 COMPL ETE BLOOD COUNT W/ DIFF MCHC 32.9 % 32-37 normal Not Available [address] [place] [address], 96823, 05/20/2024 14:41:02 05/20/2005/20/2024 COMPL ETE BLOOD COUNT W/ DIFF red cell distribution width 13.0 % 11.5-1 6.0 normal Not Available [address] [place] [address], 04341, 05/20/2024 14:41:02 05/20/2005/20/2024 COMPL ETE BLOOD COUNT W/ DIFF platelet count 165 K/uL 140-40 0 normal Not Available [address] [place] [address] [address] [place] [address], 22302, 05/20/2024 14:41:02 05/20/2005/20/2024 COMPL ETE BLOOD COUNT W/ DIFF mean platelet volume 9.7 fL 8.6-12 .5 normal Not Available [address] [place] [address] [address] [place] [address], 59910, 05/20/2024 14:41:02 05/20/2005/20/2024 COMPL ETE BLOOD COUNT W/ DIFF %nucleated RBC auto 0.0 % 0.0-0. 7 normal Not Available [address] [place] [address] [address] [place] [address], 17668, 05/20/2024 14:41:02 05/20/2005/20/2024 COMPL ETE BLOOD COUNT W/ DIFF %neutrophils auto 72.9 % Not Available [address] [facility] Drawing Station [address] [place] [address], 93515, 05/20/2024 14:41:02 05/20/20 24 05/20/2024 COMPL ETE BLOOD COUNT W/ DIFF %lymphocytes auto 18.1 % Not Available [address] [facility] Draw[facility] Station [address] [place] [address], 87157, 05/20/2024 14:41:02 05/20/2005/20/2024 COMPL ETE BLOOD COUNT W/ DIFF %monocytes auto 7.7 % Not Available [address] [facility] Draw[facility] Station [address] [place] [address], 86460, 05/20/2024 14:41:02 05/20/2005/20/2024 COMPL ETE BLOOD COUNT W/ DIFF %eosinophils auto 0.5 % Not Available [address] [facility] [address] Drawing Station [address] [place] [address], 76821, 05/20/2024 14:41:02 05/20/20 24 05/20/2024 COMPL ETE BLOOD COUNT W/ DIFF %basophils auto 0.6 % Not Available [address] [facility] Draw[facility] Station [address] [place] [address], 30449, 05/20/2024 14:41:02 05/20/20 24 05/20/2024 COMPL ETE BLOOD COUNT W/ DIFF %immature granulocytes auto 0.2 % Not Available [address] [facility] Draw[facility] Station [address] [place] [address], 88496, 05/20/2024 14:41:02 05/20/2005/20/2024 COMPL ETE BLOOD COUNT W/ DIFF #neutrophils auto 6.06 K/uL 1.50-7 .50 normal Not Available [address] [place] [address], 47544, 05/20/2024 14:41:02 05/20/20 24 05/20/2024 COMPL ETE BLOOD COUNT W/ DIFF #lymphocytes auto 1.50 K/uL 1.00-4 .50 normal Not Available [address] [place] [address] [address] [place] [address], 97140, 05/20/2024 14:41:02 05/20/20 24 05/20/2024 COMPL ETE BLOOD COUNT W/ DIFF #monocytes auto 0.64 K/uL 0.00-0 .80 normal Not Available [address] [place] [address], 40419, 05/20/2024 14:41:02 05/20/20 24 05/20/2024 COMPL ETE BLOOD COUNT W/ DIFF #eosinophils auto 0.04 K/uL 0.00-0 .40 normal Not Available [address] [place] [address], 83525, 05/20/2024 14:41:02 05/20/20 24 05/20/2024 COMPL ETE BLOOD COUNT W/ DIFF #basophils auto 0.05 K/uL 0.00-0 .20 normal Not Available [address] [place] [address], 42176, 05/20/2024 14:41:02 05/20/20 24 05/20/2024 COMPL ETE BLOOD COUNT W/ DIFF #immature granulocytes auto 0.02 K/uL 0.00-0 .10 normal Not Available [address] [place] [address] [address] [place] [address], 27211, 05/20/2024 14:41:02 05/20/20 24 05/20/2024 HEMOG LOBIN A1C hemoglobin A1C 5.4 % 4.4-6. 3 normal Metho dolog y villa e to enzym atic HbA1c metho d. Refer ence range s and resul ts homero rable to previ ous metho d. Not Available [address] [place] [address] [address] [place] [address], 53109, 05/20/2024 14:56:26 05/20/20 24 05/20/2024 COMPR EHENS YESICA METAB OLIC PANEL sodium 140 mEq/L 133-14 5 normal Not Available [address] [place] [address], 58928, 05/20/2024 15:32:51 05/20/2005/20/2024 COMPR EHENS YESICA METAB OLIC PANEL potassium 4.1 mEq/L 3.5-5. 1 normal Not Available [address] [place] [address] [place] [address], 45164, 05/20/2024 15:32:51 05/20/20 24 05/20/2024 COMPR EHENS YESICA METAB OLIC PANEL chloride 100 mEq/L 98-112 normal Pleas e note new refer ence range . Not Available [address] [place] [address] [address] [place] [address], 32084, 05/20/2024 15:32:51 05/20/20 24 05/20/2024 COMPR EHENS YESICA METAB OLIC PANEL carbon dioxide 27 mEq/L 22-31 normal Not Available [address] [place] [address] Draw[address] [place] [address], 04945, 05/20/2024 15:32:51 05/20/20 24 05/20/2024 COMPR EHENS YESICA METAB OLIC PANEL anion gap 13 mEq/L 5-15 normal Not Available [address] [facility] Drawing Station [address] [place] [address], 50062, 05/20/2024 15:32:51 05/20/20 24 05/20/2024 COMPR EHENS YESICA METAB OLIC PANEL blood urea nitrogen (BUN) 15 mg/dL 8-26 normal Not Available [address] [facility] Drawing Station [address] [place] [address], 61527, 05/20/2024 15:32:51 05/20/20 24 05/20/2024 COMPR EHENS YESICA METAB OLIC PANEL creatinine 0.85 mg/dL 0.70-1 .18 normal Not Available [address] [place] [address] [address] [place] [address], 99313, 05/20/2024 15:32:51 05/20/2005/20/2024 COMPR EHENS YESICA METAB OLIC PANEL est.glomerul ar filtration rate > 60 Units : mL/mi n/1.7 3 m2 Estim ated GFR (eGFR ) shoul d not be used for patie nts with acute kidne y injur y or ESRD (crea tinin e shoul d be at stead y state and stabl e to use). eGFR is calcu lated using the Natio nal Kidne y Found ation 2020 CKD-E PI creat inine equat ion, which is now the recom rosemarie d equat ion to estim ate GFR based on creat inine per lates t KDIGO (Kidn ey Disea se Impro ving Globa l Outco mes) Guide lines . KDIGO recom mends CKD now be class ified based on cause , GFR categ ory, and album inuri a categ ory. GFR categ ories will not be repor roxana by the lab for G1 or G2 (eGFR >60). GFR categ ories shoul d be assig lorie as: eGFR 45-59 = G3a (mild ly to moder ately decre ased) , eGFR 30-44 = G3b (mode ratel y to sever bjorn decre ased) , eGFR 15-29 G4 (magda rely decre ased) , eGFR< 15 G5 (kidn ey failu re). Not Available [address] [place] [address] [place] [address], 07200, 05/20/2024 15:32:51 05/20/20 24 05/20/2024 COMPR EHENS YESICA METAB OLIC PANEL glucose 106 mg/dL 70-100 high Fasti ng Refer ence Inter sarah: 70-10 0mg/d L Non-f astin g Refer ence Inter sarah: 70-14 0mg/d L Not Available [address] [place] [address], 00718, 05/20/2024 15:32:51 05/20/20 24 05/20/2024 COMPR EHENS YESICA METAB OLIC PANEL calcium 9.7 mg/dL 8.4-10 .4 normal Not Available [address] [place] [address], 44524, 05/20/2024 15:32:51 05/20/20 24 05/20/2024 COMPR EHENS YESICA METAB OLIC PANEL bilirubin total 0.9 mg/dL 0.2-1. 2 normal Not Available [address] [place] [address], 54771, 05/20/2024 15:32:51 05/20/20 24 05/20/2024 COMPR EHENS YESICA METAB OLIC PANEL aspartate amino transferase 16 IU/L 5-34 normal Not Available [address] [place] [address], 16116, 05/20/2024 15:32:51 05/20/20 24 05/20/2024 COMPR EHENS YEISCA METAB OLIC PANEL alanine aminotransfe rase 13 IU/L 0-55 normal Not Available [address] [place] [address], 87220, 05/20/2024 15:32:51 05/20/20 24 05/20/2024 COMPR EHENS YESICA METAB OLIC PANEL total protein 7.3 g/dL 5.8-8. 1 normal Not Available [address] [place] [address], 42019, 05/20/2024 15:32:51 05/20/20 24 05/20/2024 COMPR EHENS YESICA METAB OLIC PANEL albumin 4.2 g/dL 2.8-5. 4 normal Not Available [address] [place] [address] [place] [address], 85120, 05/20/2024 15:32:51 05/20/2005/20/2024 COMPR EHENS YESICA METAB OLIC PANEL alkaline phosphatase 63 IU/L 40-150 normal Not Available [address] [place] [address] [place] [address], 63761, 05/20/2024 15:32:51 05/20/2005/20/2024 VITAM IN B12 vitamin B12 324 pg/mL 213-81 6 normal Not Available [address] [place] [address], 28533, 05/20/2024 15:32:52 05/20/2005/20/2024 FOLIC ACID folic acid 4.5 NG/mL 7.0-31 .4 low Not Available [address] [place] [address] [place] [address], 88857, 05/20/2024 15:32:53 05/20/2005/20/2024 THYRO ID STIMU LATIN G HORMO NE thyroid stimulating hormone 1.22 uIU/m L 0.35-4 .94 normal Not Available [address] [place] [address], 52758, 05/20/2024 15:32:53 05/20/2005/20/2024 PSA SCREE N PSA screen 0.44 NG/mL 0-4 normal This test was perfo rmed using the Beckm an Coult er Acces s Chemi lumin escen t metho d. Value s obtai lorie from diffe rent assay metho ds canno t be used inter villa eably . Level s, regar dless of value , shoul d not be inter prete d as absol nome evide nce of the prese nce or absen ce of disea se. This test shoul d be inter prete d withi n the total clini david prese ntati on of the patie nt. Not Available [address] [place] [address] [address] [place] [address], 03480, 05/20/2024 15:37:29 05/20/20 24 05/20/2024 URINA LYSIS urine color Yellow yellow Not Available [address] [facility] Draw[facility] Station [address] [place] [address], 73391, 05/20/2024 20:54:18 05/20/2005/20/2024 URINA LYSIS urine clarity Clear clear Not Available [address] [facility] Draw[facility] Station [address] [place] [address], 28920, 05/20/2024 20:54:18 05/20/20 24 05/20/2024 URINA LYSIS urine glucose (UA) Negati ve negati ve Not Available [address] [place] [address] [address] [place] [address], 25450, 05/20/2024 20:54:18 05/20/20 24 05/20/2024 URINA LYSIS urine ketones Negati ve negati ve Not Available [address] [place] [address] [address] [place] [address], 64972, 05/20/2024 20:54:18 05/20/20 24 05/20/2024 URINA LYSIS urine protein Negati ve negati ve Not Available [address] [place] [address] [address] [place] [address], 53837, 05/20/2024 20:54:18 05/20/20 24 05/20/2024 URINA LYSIS urine nitrate Negati ve negati ve Not Available [address] [place] [address] [address] [place] [address], 36527, 05/20/2024 20:54:18 05/20/20 24 05/20/2024 URINA LYSIS urine bilirubin Negati ve negati ve Not Available [address] [place] [address] [address] [place] [address], 47446, 05/20/2024 20:54:18 05/20/20 24 05/20/2024 URINA LYSIS urine hemoglobin Negati ve negati ve Not Available [address] [place] [address] [address] [place] [address], 65254, 05/20/2024 20:54:18 05/20/20 24 05/20/2024 URINA LYSIS urine specific gravity 1.010 1.001- 1.030 Sp ecifi c gravi ty great er than 1.030 may be false ly eleva roxana due to inter ferin g subst ances . Recol lect if clini annemarie indic ated. Not Available [address] [place] [address] [address] [place] [address], 47840, 05/20/2024 20:54:18 05/20/20 24 05/20/2024 URINA LYSIS ur pH 5.5 5.5-7. 5 Not Available [address] [place] [address], 56235, 05/20/2024 20:54:18 05/20/20 24 05/20/2024 URINA LYSIS urine urobilinogen 0.2 E.U./ dL 0.2-1. 0 Not Available [address] [place] [address], 74208, 05/20/2024 20:54:18 05/20/20 24 05/20/2024 URINA LYSIS urine leukocyte esterase Negati ve negati ve Not Available [address] [place] [address], 32530, 05/20/2024 20:54:18 05/16/2005/16/2023 CV pvr at rest [facility] [address] [place] [id number] Cardio vascul ar Report Signed Patien t: LastYordy obrien rachel 1825 : [address]: Jose Reyes EMR ID: [id number] Age: 67 E.D. Attend ing: Acct: [id number] Loc: [facility] PCP: Jose Reyes MD Admit/ Svc Date: Orderi ng Physic akin: Jose Reyes MD Date of Servic e: Proced ure(s) : CV PVR at rest Reason for Exam: Increa sed pain in both legs/d ifficu lty walkin g r/o Access ion Number (s): [id number] Fax to: cc: Jose Reyes MD l1 n 3 Lower Extrem ity Arteri al Segmen niurka Physio logic Exam Name: Zbigniew black Access ion#: [id number] MR#: [id number] Admiss ion Number : [id number] Study Date: 2022 Study Time: 01:27 PM Date Of : 1955 Age: 67 year(s ) Height : ( ) Weight : ( ) BSA: Gender : Male Exam Note: The left thigh, calf and ankle pvr record ings are not of diagno stic qualit y due to pain and signif icant moveme nt of the left leg. On the left side only the joyce is diagno stic due to non-co mpress ible vessel s proxim ally. Proced ure(s) : CV PVR at rest Reason For Exam: Reason for examIn crease d pain in both legs/d ifficu lty walkin g r/o : Proced ure Compon ents: pulse volume plethy smogra phy, segmen niurka pressu res Proced ure Status : Routin e study Image Qualit y: Poor Room: [facility] Out Pati t Indica tion: leg pain Vascul ar Surgeo n: Amanda sanchez MD CV Sonogr apher: Ramesh Guerrero , Vascul ar Tech Orderi ng Physic akin: Jose Reyes Admitt ing Physic akin: Jose Reyes Conclu sions * Right JOYCE is 1.11 indica ting no signif icant PVD * left JOYCE is 1.20 indica ting no signif icant PVD Findin gs Lower Extrem ity Arteri al Physio logic Findin gs Brachi al Pressu res and Indice s: Highes t Brachi al pressu re measur es 171 mmHg. Right Brachi al pressu re measur es 167 mmHg. Left Brachi al pressu re measur es 171 mmHg. Right JOYCE is 1.11. Left JOYCE is 1.20. Right Vessel s: Right Thigh: Pressu re measur es 154 mmHg. Index measur es 0.90. The PVR wavefo rm demons trates normal amplit ude and loss of dicrot ic notch. Right Calf: Vessel segmen t is noncom pressi ble. The PVR wavefo rm demons trates normal amplit ude and loss of dicrot ic notch. 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 Index measur es 1.11. Patien t: Zbigniew black 092 Study Date: 2022 01:27 PM Page 1 of 2 Right Dorsal is Pedis: Pressu re measur es 176 mmHg. Index measur es 1.03. Right ankle: The PVR wavefo rm demons trates normal amplit ude and loss of dicrot ic notch. Left Vessel s: Left Thigh: Vessel segmen t is noncom pressi ble. The PVR wavefo rm is unavai lable due to patien t moving . Left Calf: Vessel segmen t is noncom pressi ble. The PVR wavefo rm is unavai lable due to patien t moving . 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 Index measur es 1.20. Left Dorsal is Pedis: Pressu re measur es 161 mmHg. Index measur es 0.94. Left ankle: The PVR wavefo rm is unavai lable due to patien t moving . Electr onical ly signed by Amanda sanchez MD on 2022 at 04:40 PM Patien t: Zbigniew black 092 Study Date: 2022 01:27 PM Page 2 of 2 014 CP/CV PVR at rest Impres sions: * Right JOYCE is 1.11 indica ting no signif icant PVD * left JOYCE is 1.20 indica ting no signif icant PVD Electr onical ly signed on at 1327 by Amanda sanchez MD. MARIANNE [address] [place] [address] [place] (Radiology) [address] [place] [address] [place], [address], 05/21/2023 20:43:16 06/27/20 23 06/18/2023 imagi ng/di agnos tic resul t No observ ation record ed. [email or web address] [facility] [address] [facility] [address] [facility], [place], [address], 06/28/2023 21:54:05 05/29/20 24 05/29/2024 CT, brain , w/o contr ast [facility] Diagno stic Imagin g [facility] [address] [place] [address] CT Scan Report Signed Patien t: Yordy Gentile 18[birth year] : [address]: Jose Reyes Age: 68 E.D. Attend ing: EMR ID: [id number] Loc: RAD.NR PCP:St noah Reyes MD Acct: [id number] Admit/ Svc Date: Orderi ng Physic akin: Jose Reyes MD Date of Servic e: Proced ure(s) : CT brain wo con Reason for Exam: Stroke W expres sive aphasi a Access ion Number (s): [id number] Fax to: cc: Jose Reyes MD [...] 5 mm axial sectio ns with iterat yesica recons tructi on dose reduct ion techni [...] on at 1130 by Avni Dwyer MD. TATY [facility] (Radiology) [address] [place] [address] [place], [address], 05/29/2024 18:00:31 Result Notes None recorded. 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 Procedures Surgical History None recorded. Imaging Results Imaging Date Name Status LastModified by Organiz ation Details LastModified Time 05/16/2023 CV pvr at rest completed [address] (Radiology) [address] [place], [address], 05/21/2023 20:43:16 06/18/2023 imaging/diagn ostic result completed [address] [place] [address], [address], 06/28/2023 21:54:05 05/29/2024 CT, brain, w/o contrast completed [address] (Radiology) [address] [place], [address], 05/29/2024 18:00:31 Procedure Notes None recorded. Medical Equipment None Reported. [...] height Body mass index (BMI) Body weight Systolic blood pressure Diastolic blood pressure Provider Name and Address Organization Details Last Updated DateTime 05/29/2023 164.47 cm 49.1 kg/m2 229809.5 6 g 132 mm[Hg] 74 mm[Hg] Sylvia Reyes MD 3 09:10:33 Date Recorded Body height Body mass index (BMI) Body weight Oxygen saturation Oxygen saturation in Arterial blood by Pulse oximetry Heart rate Systolic blood pressure Diastolic blood pressure Provider Name and Address Organization Details Last Updated DateTime 4 164.47 cm 49.3 kg/m2 055581. 16 g 93 % 93 % 84 /min 120 mm[Hg] 70 mm[Hg] Rose Reyes MD 4 10:46:29 Date Recorded Body height Oxygen saturation Oxygen saturation in Arterial blood by Pulse oximetry Heart rate Systolic blood pressure Diastolic blood pressure Provider Name and Address Organization Details Last Updated DateTime 4 164.47 cm 96 % 96 % 98 /min 140 mm[Hg] 88 mm[Hg] Rose Reyes MD 4 08:59:01 Date Recorded Body mass index (BMI) Body weight Provider Name and Address Organization Details Last Updated DateTime 05/19/2024 47.6 kg/m2 077261.23 g Cosme Reyes MD [address], [place], [address], ADELITA Reyes MD 05/19/2024 09:37:27 Date Recorded Body height Body mass index (BMI) Body weight Oxygen saturation Oxygen saturation in Arterial blood by Pulse oximetry Heart rate Systolic blood pressure Diastolic blood pressure Provider Name and Address Organization Details Last Updated DateTime 4 164.47 cm 47.5 kg/m2 629080. 64 g 95 % 95 % 63 /min 114 mm[Hg] 76 mm[Hg] Rose Guerrero ADELITA Reyes MD 4 08:49:35 Social History Question Answer Notes LastModified by Organizat ion Details LastModified Time Tobacco Smoking Status Never Smoker Not Available [facility] 05/25/2020 03:48:01 What Is Your Occupation? Retired [id number] Information not available 05/25/2020 Marital Status [email or web address] Informatio n not available 05/09/2017 What Was The Date Of Your Most Recent Tobacco Screening? 04/24/2018 [id number] Information not available 05/25/2020 General Stress Level Low [email or web address] Information not available 05/09/2017 Sex: Unknown Functional Status Question Answer Note LastModified by Organization D etails LastModified Time What is your exercise level? None [id number] Information not available 05/25/2020 Mental Status None recorded. Family History Relationship Description Onset Age of this Age Resolved Age Notes LastModified by Organization Details LastModified Time Father Coronary arterioscler osis [email or web address] Not available 2016 16:06:33 Mother Diabetes mellitus [email or web address] Not available 2016 16:06:49 Medical History No medical history recorded. Immunizations Vaccine Type Date Status Note Provider Nam e and Address Organization Details Recorded Time Td (adult) 7 completed Not Available [facility] 09/09/2020 14:03:23 Influenza, split virus, quadrivalent, preservative 8 completed Not Available [facility] 09/09/2020 14:03:23 Influenza, split virus, quadrivalent, preservative 9 completed Not Available [facility] 09/09/2020 14:03:23 Influenza, split virus, quadrivalent, preservative 0 completed Not Available [facility] 09/09/2020 14:03:23 pneumococcal polysaccharide PPV23 1 completed ADELITA miranda MD 06/07/2021 16:07:49 Influenza, split virus, quadrivalent, preservative 1 completed ADELITA miranda MD 06/07/2021 16:10:43 Influenza, adjuvanted, quadrivalent, PF 2 completed chelita zaldivar [place] - Cosme Reyes MD 06/01/2022 08:11:53 Influenza, split virus, quadrivalent, preservative 6 completed Not Available [facility] 09/09/2020 14:03:23 Past Encounters Encounter ID Performer Location Encounter Start Date Encounter Closed Date Diagnosis/Indication Diagnosis SNOMED-CT Code Diagnosis ICD10 Code [id number] MD cosme Paul md [address] [place] [address] 05/30/2016 13:15:47 05/30/2016 14:10:03 Strain of gastrocnemius tendon 050354626 S86.112A Hypertensive disorder 38 973189 I10 Needs infl uenza immunization 248199961 Z23 [id number] MD cosme Paul md [address] [place] [address] 05/30/2016 14:03:51 05/30/2016 14:47:37 [id number] MD cosme Paul md [address] [place] [address] 11/15/2016 15:16:29 11/15/2016 16:14:21 Hypertensive disorder 23311262 I10 Osteoarthritis 002556991 M19.90 Skin tag 385001491 L91.8 [id number] MD cosme Paul md [address] [place] [address] 05/09/2017 15:25:34 05/09/2017 16:09:07 Hypertensive disorder 24479248 I10 Osteoarthr itis of knee 507327669 M17.0 Morbid obesity 077932016 E66.01 [id number] MD cosme Paul md [address] [place] [address] 11/15/2017 16:26:45 11/20/2017 11:04:21 Hypertensive disorder 94923626 I10 Osteoarthr itis of knee 734994825 M17.0 [id number] MD cosme Paul md [address] [place] [address] 04/24/2018 15:31:31 04/24/2018 16:10:15 Hypertensive disorder 64518727 I10 Obstructiv e sleep apnea syndrome 44514419 G47.33 [id number] emiliano reyes md [address] [place] [address] 06/18/2018 13:56:51 06/18/2018 14:43:31 [id number] MD cosme Paul md [address] [place] [address] 11/13/2018 15:26:04 11/13/2018 16:19:13 Hypertensive disorder 73321833 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 1 Hypertriglyceridemia 302 245171 E78.1 [id number] MD cosme Paul md [address] [place] [address] 05/21/2019 15:15:42 05/21/2019 16:20:24 Adult health examination 857798054 Z00.00 [id number] MD cosme Paul md [address] [place] [address] 2019 16:23:22 2019 16:52:56 Hypertensive disorder 87248495 I10 Osteoarthr itis of knee 317415823 M17.0 [id number] MD cosme Paul md [address] [place] [address] 01/02/2020 15:39:06 01/02/2020 16:20:10 Low back pain 892513926 M54.5 [id number] MD cosme Paul md [address] [place] [address] 02/06/2020 15:22:57 02/06/2020 15:58:38 Low back pain 860696306 M54.5 [id number] MD cosme Paul md [address] [place] [address] 02/16/2020 16:53:50 02/16/2020 16:54:10 Chronic low back pain 907583051 M54.5 [id number] emiliano reyes md [address] [place] [address] 05/05/2020 15:58:41 05/05/2020 16:09:35 [id number] MD cosme Paul md [address] [place] [address] 05/26/2020 15:49:06 05/26/2020 16:37:58 Adult health examination 475335540 Z00.00 [id number] MD cosme Paul md [address] [place] [address] 11/24/2020 16:20:28 11/24/2020 16:57:53 Hearing loss 22972097 H91.92 Hypertensive disorder 38 010836 I10 Sciatica 95906931 M54.31 [id number] MD cosme Paul md [address] [place] [address] 06/07/2021 15:20:21 06/07/2021 16:04:55 Adult health examination 219579931 Z00.00 [id number] MD cosme Paul md [address] [place] [address] 12/13/2021 16:24:51 12/13/2021 16:59:07 Hypertensive disorder 49972061 I10 Spinal yordy nosis of lumbar region 06615078 M48.062 Morbid obesity 937732075 E66.01 [id number] MD cosme Paul md [address] [place] [address] 06/01/2022 07:50:00 06/01/2022 08:30:24 Hypertensive disorder 46984107 I10 Chalazion of lower eyelid 849390810 H00.19 Osteoarthr itis of knee 515184149 M17.0 Obesity 512038628 E66.9 [id number] MD cosme Paul md [address] [place] [address] 12/06/2022 07:53:49 12/06/2022 08:34:29 Hypertensive disorder 08264280 I10 Hypertriglyceridemia 302 454321 E78.1 Lumbar radiculopathy 128 479749 M54.16 Obesity 767689179 E66.9 [id number] MD cosme Paul md [address] [place] [address] 03/05/2023 08:41:59 03/05/2023 10:03:47 Lumbar radiculopathy 291027594 M54.16 [id number] MD cosme Paul md [address] [place] [address] 05/09/2023 13:18:00 05/09/2023 14:07:37 Lumbar radiculopathy 674438010 M54.16 [id number] MD cosme Paul md [address] [place] [address] 05/29/2023 08:50:25 05/29/2023 09:40:13 Lumbar radiculopathy 585664995 M54.16 Morbid obesity 367663385 E66.01 [id number] MD cosme Paul md [address] [place] [address] 2023 10:21:49 2023 11:18:10 Adult health examination 925426189 Z00.00 Neurogenic claudication 385614723 M48.062 [id number] MD cosme Paul md [address] [place] [address] 01/21/2024 09:32:19 01/21/2024 10:10:06 Hypertensive disorder 40509282 I10 Pain of ri ght knee joint 9500401262 48061 M25.561 Weakness o f bilateral lower limb 9270034385 24254 M62.81 Benign pro static hyperplasia with outflow obstruction 999220933 N40.1 [id number] MD cosme Paul md [address] [place] [address] 05/19/2024 08:42:45 05/19/2024 09:50:38 Aphasia 74362388 R47.01 Hypertensive disorder 38 916584 I10 Morbid obesity 004550785 E66.01 [id number] MD cosme Paul md [address] [place] [address] 06/10/2024 08:20:35 06/10/2024 09:29:02 Onychomycosis of toenails 223629507 B35.1 Low back pain 844332170 M54.50 Benign pro static hyperplasia 259450017 N40.1 Memory impairment 747056 006 R41.3 Health Concerns Section Related Observation LastModified by Organization Detai ls LastModified Time None Recorded Concern Status LastModified by Organization Details LastModified Time None Recorded Advance Directives Directive None Recorded Payers Encounter Date Sequence Insurance Name Policy Number Policy Wolfe Covered Member ID Wolfe Member ID Guarantor Name 05/29/2023 1 [place] Zbigniew Walter Yulytebabari [id number] Zbigniew Watson Yulytelli 05/29/2023 2 [place] [id number] Zbigniew Emerytelli [id number] Zbigniewbenji Emerytelli 2023 1 [place]: [place] Zbigniew Walter Yulytebabari [id number] 78 Zbigniew Walter Yulytelli 2023 2 [place] [id number] Zbigniew Watson Critelli [id number] Zbigniew Watson Critelli 01/21/2024 1 [place] Zbigniew Emerytebabari [id number] 78 Zbigniew Emerytelli 01/21/2024 2 [place] [id number] Zbigniew Emerytelli [id number] Zbigniewbenji Emerytelli 05/19/2024 1 [place] Zbigniew Emerytebabari [id number] 78 Zbigniewbenji Emerytelli 05/19/2024 2 [place] [id number] Zbigniew Emerytelli [id number] Zbigniew Emerytelli 06/10/2024 1 [place] Zbigniew Emerytebabari [id number] 78 Zbigniew Emerytelli 06/10/2024 2 [place] [id number] Zbigniew Watson Critelli [id number] Zbigniew Emerytebabari Notes Date Note Type Note Provider Name and Address Organization Details Recorded Time 3 text/html Patient follows up after neurosurgical consultation. The neurosurgeon thought patient was not having back pain. In in fact patient has back pain every day with severe pain in his legs. He completed PVR testing for circulation and this is normal. In addition he was found to have severe carpal tunnel and suspicion of cervical spine myelopathy. An MRI of the cervical spine is being scheduled. Patient has contacted the neurosurgeon to clarify that indeed his back pain is severe. We referred reviewed the possible surgical interventions including disc fusion and osteotomy. MD [address], [place], [address], ADELITA Reyes MD 05/29/2023 17:17:57 4 text/html Here for Medicare wellness visit. Patient underwent L5 bilateral decompression for spinal stenosis with neurogenic claudication. His legs continue to feel weak. He has had some relief of pain. He is afraid to walk on his own for fear of falling and not being able to get back up. He has history of morbid obesity. He reports minimal ambulation for the past year. He completed his postoperative follow-ups with Dr. Emerson in [facility]. He had no postoperative therapy. MD [address], [place], [address], ADELITA Reyes MD 2023 11:27:32 4 text/html Patient was evaluated by urology for benign prostatic hypertrophy with lower urinary tract symptoms. He already was receiving finasteride and tamsulosin was added. He felt that his speech was slowing down and he was more lightheaded so he stopped the tamsulosin. Since being on finasteride his nocturia has improved dramatically. He only gets up about twice at night to urinate. He feels very sedentary and is just now getting to physical therapy for rehab after his back surgery. MD [address], [place], [address], ADELITA Reyes MD 01/21/2024 10:18:44 4 text/html Patient presents with his brother. Family has noticed over 4 months he is having significant difficult forming sentences and getting his words out. He has history of hypertension and morbid obesity. He gets out of bed but does not walk much. He is having frequency of urination at night. He typically goes to sleep at 7 PM and gets up multiple times overnight to urinate. His medications are finasteride and hydrochlorothiazide. Urology is following him for BPH. His brother notes patient worries a lot. His medications are finasteride and hydrochlorothiazide. Patient also complains of frequent back pain when he lays down and that his legs are weak. He denies depression. MD [address], [place], [address], ADELITA Reyes MD 05/19/2024 09:41:34 text/html Patient follows up with his initially for deformed toenails. He has thickened yellowed toenails which often catch on his socks. They have been using topical antifungals [id number] without real improvement. He also has intermittent [...] he wants to remain on the medication. MD [address], [place], [address], ADELITA Reyes MD 06/10/2024 09:37:14
--- NOTE | 2024-07-04 11:43 | A.SPINEOV_ITS ---
Vital Signs 07/04/24 11:44 Weight 281 lb 2 oz Intake Visit Reasons: sx on 06/14 follow up Intake Note: Mr. 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 He has seen improvement in his leg pain, but his family is here with him today to advocate about other issues that are going on. They have noticed him having some difficulty with his speech, as well as overall global sense of weakness. There is also been a change in his affect. The patient reports weakness in his hands, numbness of his right hand with balance problems. He also noticed an increase in urinary frequency as well as urinary urgency. On my exam today, he is very slow to stand up, he has difficulty maintaining an upright posture. There is no tremor. He does have a little bit of a masked facies. His strength globally in his arms is about a 3 to 4/5. His hands are significantly weak, the right greater than left I would rate them as 3/5 bilaterally. He has iliopsoas weakness as well which I would rate as 4/5. He has hyperreflexia more on the right than the left with Hunter's sign in both hands and hyperreflexia in his patella in his Achilles. I spoke with Dr. Emerson, I think this patient has cervical myelopathy and will order a cervical MRI urgently. Also, because of the history of speech issues that his family's reporting that I am also detecting here in the office I will order brain MRI. He is followed by a neurologist already who is going to order that so we will try to do it at the same time as his cervical MRI. They will get the disc from the [facility] and see us back with it in the office. Total amount of time spent in this visit was 20 minutes in discussion of sym ptoms, ordering cervical and brain imaging results and subsequent plan of care Alexis Emerson MD,PhD [facility] Orders: Orders MR cervical spine wo con Today G95.9 - Disease of spinal cord, unspecified MR head/brain wo con Today R47.01 - Aphasia Coding Level of Care Code Est Pt Level 3 (57561) Diagnoses Cervical myelopathy G95.9
== END 2024-07-04 12:37 | disposition home or self-care (01) ==
PROVIDERS: PCP Family Medicine; Visit Provider Physician Assistant
DX: G95.9 Disease of spinal cord, unspecified (principal)
CPT/HCPCS: 99213

== ENCOUNTER → 2024-07-04 10:42 | Outpatient (BNVA) | payer MEDICARE, SELFPAY | PROVIDERS: PCP Family Medicine; Visit Provider Neurological Surgery | DX: G95.9 Disease of spinal cord, unspecified (principal) | CPT/HCPCS: 99212 ==